=== PATIENT | female | born 1940 | race Caucasian/White ===

== ENCOUNTER 2017-02-07 07:08 | Emergency (ER) | payer OTHER ==
[2017-02-07 07:28] VITALS: RESP 18
--- NOTE | 2017-02-07 07:51 | EDPHY ---
HPI/HX/ROS/PE/MDM Narrative: CHIEF COMPLAINT: Back pain HPI: The patient is a 76 y/o female arriving with her complaining of back and shoulder pain secondary to a fall out of bed early this morning about 7 hours ago. She rolled over out of bed and land on her right side. Her pain is localized primarily to her right lower back and right shoulder. She notes she's had ongoing right-sided abdominal pain for which she is followed by her PCP that has worsened since the fall. She took one dose of [place] without improvement this morning. She came in this morning because the pain has made it difficult to walk. She denies loss of consciousness, weakness, or paresthesias. She does not use anticoagulants. REVIEW OF SYSTEMS: Aside from elements discussed in the HPI, a comprehensive 10-point review of systems was reviewed and is negative. PMH: Back surgery, Parkinson's, non-Hodgkin's lymphoma, psoriasis SOCIAL HISTORY: [facility] [place] daughter who lives here. PHYSICAL EXAM: General:Patient is alert, resting dyskinesia consistent with Parkinson's, in no acute distress. ENT:Eyes are normal to inspection. ENT inspection normal. Neck: Wearing a soft cervical collar due to old injury Respiratory:No respiratory distress. Breath sounds normal bilaterally. Cardiovascular: Regular rate and rhythm. Strong peripheral pulses. Normal cap refill. Abdomen:The abdomen has mild RLQ tenderness to palpation. There are no peritoneal signs. Back: Normal to inspection. No tenderness to palpation. Skin: Normal color. No rash. Warm and dry. Extremities: Normal appearance. Full range of motion. Neuro: Oriented x3. Normal motor function. Normal sensory function. ED Course: This is a 76 y/o female with a history of Parkinson's who presents with a 7- hour history of right shoulder and right lower back pain secondary to falling out of bed this morning. She has an existing neck injury from a previous fall. She has normal motor function and sensation in her extremities, but does have dyskinesia consistent with Parkinson's on exam. Plan for ISTAT, then head CT, neck CT, abdominal CT, humerus x-ray, and shoulder x-ray. 0925: CT neck shows reinjury of odontoid. The patient had an old fracture here, but Dr. Sims believes this is acute due to associated hematoma. 0933: Consulted with Dr. Cummings, neurosurgery. He will review images and assess patient in the ED. He also requests a neck MRI. Abdominal CT shows enlarged retroperitoneal lymph nodes that will need to be followed by the patient's oncologist. Humerus and shoulder x-rays show nothing acute. 1110: Neck MRI does not show acute odontoid fracture. I discussed these results with the patient. She will be discharged with standard follow up instructions post-fall and recommendation to see her PCP this week. She is comfortable with this plan. Return precautions discussed. MDM: This patient presents after fall out of bed. Her initial CTCsp was read as concerning for acute new trauma, but MRI is essentially negative and there are no signs of new injury. XRs are negative of the right UE. The patient complains of worsened pain in her right flank but these symptoms have been present for months and nothing acute is seen on CT. The patient is comfortable with the plan to be discharged home. - Data Points Imaging Results: Imaging Impressions Abdomen CT 02/07/17 07:46 Impression: 1. No posttraumatic abnormality identified. No source for right flank pain identified. 2. Subtle increase in prominence of retroperitoneal nodes since 2012. Results called and discussed with Kenton Jane MD, at 02/07/2017 9:46 General information for patients regarding this examination can be found at [email or web address]. If you have questions or comments about this report, please contact me at (hospital) or [phone] (cell). Cervical Spine CT 02/07/17 07:46 Impression: 1. New fluid in the right mastoid sinus. Does the patient have any symptoms of mastoiditis? 2. No posttraumatic abnormality identified. 2. CT Cervical Spine Without Contrast, 8:44 AM History: Trauma. Fall this morning. History of lymphoma. Technique: Multislice helical CT through the cervical spine without contrast from the skull base to T1. Soft tissue and bone evaluation is performed. Sagittal and coronal reconstructions are obtained and reviewed. Dose reduction techniques were utilized. Comparison: CT April 04, 2016 Findings: There is a chronic fracture through the base of the odontoid. There is increased distraction, 5mm, compared to previous 1.6 mm , and increased dorsal displacement, 4 mm compared to prior 2.5 mm. This is associated with new bulging hematoma both anterior and posteriorly. In the midline the AP diameter of the neural canal at the level of the fracture measures about 9 mm, compared to prior 15 mm. 2 small cortical bone chips are present off midline, along the posterior margins of the fracture, and were present previously. There is chronic osteoarthritic change of the joint between the odontoid and the anterior ring of C1. The skull base and the lateral masses of C1 remain normally aligned and are intact. There is likely degenerative spondylolisthesis at C4-C5 approximately 3.2 mm. There is moderate degenerative disk space narrowing between C5 and C7. There is chronic erosive change on either side of the C6-C7 disk space. There is multilevel degenerative facet disease. The facets remain normally aligned. There is fusion of bilateral C4-C5 facet joints. No additional acute fracture is identified. Impression: Suspect acute reinjury of the previous odontoid fracture, where there is new marginal hematoma, increased distraction and posterior displacement. Differential diagnosis includes a chronically unstable injury associated with thickened yanelis fracture soft tissues. MRI would be useful for differentiation if clinically indicated. Results called and discussed with Kenton Jane MD, at 02/07/2017 9:35 Final results are concordant with the initial interpretation. General information for patients regarding this examination can be found at [email or web address]. If you have questions or comments about this report, please contact me at (hospital) or [phone] (cell). Head CT 02/07/17 07:46 Impression: 1. New fluid in the right mastoid sinus. Does the patient have any symptoms of mastoiditis? 2. No posttraumatic abnormality identified. 2. CT Cervical Spine Without Contrast, 8:44 AM History: Trauma. Fall this morning. History of lymphoma. Technique: Multislice helical CT through the cervical spine without contrast from the skull base to T1. Soft tissue and bone evaluation is performed. Sagittal and coronal reconstructions are obtained and reviewed. Dose reduction techniques were utilized. Comparison: CT April 04, 2016 Findings: There is a chronic fracture through the base of the odontoid. There is increased distraction, 5mm, compared to previous 1.6 mm , and increased dorsal displacement, 4 mm compared to prior 2.5 mm. This is associated with new bulging hematoma both anterior and posteriorly. In the midline the AP diameter of the neural canal at the level of the fracture measures about 9 mm, compared to prior 15 mm. 2 small cortical bone chips are present off midline, along the posterior margins of the fracture, and were present previously. There is chronic osteoarthritic change of the joint between the odontoid and the anterior ring of C1. The skull base and the lateral masses of C1 remain normally aligned and are intact. There is likely degenerative spondylolisthesis at C4-C5 approximately 3.2 mm. There is moderate degenerative disk space narrowing between C5 and C7. There is chronic erosive change on either side of the C6-C7 disk space. There is multilevel degenerative facet disease. The facets remain normally aligned. There is fusion of bilateral C4-C5 facet joints. No additional acute fracture is identified. Impression: Suspect acute reinjury of the previous odontoid fracture, where there is new marginal hematoma, increased distraction and posterior displacement. Differential diagnosis includes a chronically unstable injury associated with thickened yanelis fracture soft tissues. MRI would be useful for differentiation if clinically indicated. Results called and discussed with Kenton Jane MD, at 02/07/2017 9:35 Final results are concordant with the initial interpretation. General information for patients regarding this examination can be found at [email or web address]. If you have questions or comments about this report, please contact me at (hospital) or [phone] (cell). Humerus X-Ray 02/07/17 07:47 Impression: Nothing acute identified. 2. Right Humerus, 2 views History: Pain post fall Comparison: None Findings: No fracture or malalignment is identified. Mineralization is normal. Impression: Negative. Shoulder X-Ray 02/07/17 07:47 Impression: Nothing acute identified. 2. Right Humerus, 2 views History: Pain post fall Comparison: None Findings: No fracture or malalignment is identified. Mineralization is normal. Impression: Negative. Cervical Spine MRI 02/07/17 09:32 Impression: Unstable chronic odontoid fracture. No evidence for acute reinjury. Findings on the CT earlier today are consistent with chronic instability. Please note that this study is less than optimal due to patient motion. Final concordant results called and discussed with Kenton Jane MD, at 02/07 11:11. Imaging: Discussed imaging studies w/ manager transit Radiologist, I viewed and interpreted images myself Laboratory Results: 02/07/17 08:01 POC Hgb 13.3 gm/dL gm/dL (12.3-15.9) POC Hct 39 % % (35.5-47.5) POC Sodium 145 mEq/L H mEq/L (134-144) POC Potassium 4.2 mEq/L mEq/L (3.3-5.0) POC Chloride 105 mEq/L mEq/L (96-108) POC BUN 26 mg/dL H mg/dL (7-23) POC Creatinine 1.0 mg/dL mg/dL (0.6-1.2) POC Glucose 93 mg/dL mg/dL (70-100) Point of Care Test Results: 02/07/17 08:01 POC Sodium 145 H POC Potassium 4.2 POC Chloride 105 POC BUN 26 H POC Creatinine 1.0 POC Glucose 93 General Time Seen by Provider: 02/07/17 07:25 Initial Vital Signs: Initial Vital Signs Temperature (C) 36.5 C 02/07/17 07:25 Heart Rate 79 02/07/17 07:25 Respiratory Rate 18 02/07/17 07:25 Blood Pressure 119/99 H 02/07/17 07:25 O2 Sat (%) 94 02/07/17 07:25 O2 Delivery Mode Room Air Allergies/Adverse Reactions: latex Allergy (Verified 02/07/17 07:24) Penicillins Allergy (Verified 02/07/17 07:24) Home Medications: Medication Instructions Recorded Amantadine HCl [Symmetrel] 100 mg PO BID 04/04/16 Glucosamine 1,500 mg PO DAILY@1200 04/04/16 Multivitamin 1 ea PO DAILY@1200 04/04/16 Ropinirole HCl 12 mg PO BID 04/04/16 Zelapar 1.25 mg PO DAILY 04/04/16 Zocor 10 mg PO HS 04/04/16 Acetaminophen [Acetaminophen Extra 1,000 mg PO HS 04/05/16 Strength] Herbals/Supplements -Info Only 1 ea PO AD 04/05/16 Rytary ER 36.25 mg-145 mg Cap 36.25 mg PO ACHS 04/05/16 Venlafaxine HCl [Venlafaxine HCl 150 mg PO DAILY 04/05/16 ER] Acetaminophen [Tylenol 325mg (*)] 325 - 650 mg PO Q4 PRN #0 tab 04/06/16 Acetaminophen [Tylenol ES 500 mg 1,000 mg PO HS #0 tab 04/06/16 (*)] Amantadine HCl [Symmetrel] 100 mg PO BID #0 cap 04/06/16 Calcium Carb W/Vit D [Calcium Carb 500 mg PO HS #0 tab 04/06/16 W/Vit D 500/200 (*)] Furosemide [Lasix 20 MG (*)] 20 mg PO DAILY PRN #0 tab 04/06/16 HYDROmorphone HCL [Dilaudid] 0.2 - 0.4 mg IVP Q4 PRN #0 syr 04/06/16 LORazepam [Ativan inj 2 mg/ml (*)] 0.5 mg IVP Q6 PRN #0 inj 04/06/16 Ondansetron HCl Pf [Zofran 4 mg 4 mg IVP Q4 PRN #0 vial 04/06/16 Inj (*)] Pravastatin Sodium [Pravachol] 20 mg PO HS #0 tab 04/06/16 Ropinirole HCl 12 mg PO BID 04/06/16 Rytary Er 36.25 Mg-145 Mg Cap 36.25 mg PO ACHS 04/06/16 Venlafaxine Xr [Effexor Xr] 150 mg PO DAILY #0 cap 04/06/16 Zelapar 1.25 mg PO DAILY@0600 04/06/16 Zolpidem Tartrate [Ambien 5MG (*)] 5 - 10 mg PO HS PRN #0 tab 04/06/16 oxyCODONE/APAP 5/325 [Percocet 1 - 2 tab PO Q4 PRN #0 tab 04/06/16 5/325 (*)] Departure - Departure Disposition: Home, Routine, Self-Care Clinical Impression: Fall Qualifiers: Encounter type: initial encounter Qualified Code(s): W19.XXXA - Unspecified fall, initial encounter Right shoulder pain Qualifiers: Chronicity: acute Qualified Code(s): M25.511 - Pain in right shoulder Condition: Good Instructions: Fall Prevention for Older Adults (ED), Shoulder Pain (ED) Additional Instructions: 1. Follow up with your primary care provider this week. 2. Your abdominal CT showed some enlarged retroperitoneal lymph nodes that should be followed up by your oncologist within 6 weeks. 3. Return to the ED for severe pain, weakness or numbness in your extremities, worsening abdominal pain, or other worsening of condition. Referrals: Patient,NotPresent [Primary Care Provider] - As per Instructions Report Scribed for: Kenton Jane Report Scribed by: Natalia Mitchell Date of Report: 02/07/17 Time of Report: 07:51 Physician Review and Approval Statement: Portions of this note were transcribed by an ED scribe. I personally performed the history, physical exam, and medical decision making; and confirm the accuracy of the information in the transcribed note.
[2017-02-07] MEDS ORDERED: IOPAMIDOL (ISOVUE-300) 100 ML BTL ONE (07:59)
[2017-02-07 12:00] VITALS: BP 125/74; PULSE 82; TEMP 97.9; O2SAT 92
--- NOTE | 2017-02-07 14:13 | GCON ---
[f rep st] CONSULTATION NEUROSURGICAL CONSULT. DATE OF CONSULTATION: 02/07/2017 Patient was seen and evaluated at approximately 11:45 a.m. in the [facility] Emergen cy Department. CHIEF COMPLAINT: Chronic neck fracture. HPI: The patient is a 76-year-old woman, who presented to the ER today complaining of back and shou lder pain after a fall out of bed, approximately 7 hours prior to her presentation. She does have a history of a type 2 odontoid fracture from March of 2016, for which she was seen in the same hospita l. She lives in [place], has been managed by a surgeon there, and is known to have a stable ps eudoarthrosis. She does not have any new neck pain today, or any signs of spinal cord compression o r radiculopathy. She did have a CT scan of the cervical spine, which shows about 3-4 mm of distract ion of the fracture at C2. She also had an MRI of the cervical spine, which does not show any spina l cord compression or hematoma, and no new fracture. She does not have any new symptoms from what s he had before. REVIEW OF SYSTEMS: A 10-point review of systems is negative, other than described in the HPI. PAST MEDICAL HISTORY: 1. L4-5 fusion. 2. Parkinson disease. 3. Non-Hodgkin's lymphoma. 4. Psoriasis. 5. 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 FAMILY HISTORY: Negative for any neck fractures. SOCIAL HISTORY: The patient is accompanied by her . She is from [place], is visiting [facility] daughter, who is with twins. She denies tobacco, alcohol or other drug use. ALLERGIES: 1. Latex. 2. Penicillin. MEDICATIONS: 1. Amantadine. 2. Glucosamine. 3. Multivitamin. 4. Ropinirole. 5. Zelapar. 6. Zocor. 7. Acetaminophen. 8. Rytary ER. 9. Venlafaxine. 10. Calcium carbonate. 11. Lasix. 12. Dilaudid. 13. Lorazepam. 14. Zofran. 15. Pravastatin. PHYSICAL EXAM: GENERAL: Currently, she is awake, alert, and oriented x3. NEURO: The cranial nerv es 2-12 are grossly normal. Her speech is clear and fluent. She does have clear dyskinesias from [facility] Parkinson's medications, but has no sign of bradykinesia at this point. She has full 5/5 strengt h in deltoids, biceps, triceps, wrist flexion, extension, and print room worker on both sides. In the lower extr emities, she has full 5/5 strength in hip flexors, extensors, knee flexors, extensors, plantar and d orsiflexion bilaterally. Her deep tendon reflexes are normal. Her sensation is normal throughout t o light touch and pinprick. She does not have any pain with palpation of the neck. She is currentl y wearing a soft collar, which is what she wears at home. IMAGING REVIEW: See HPI. LABORATORY REVIEW: The hemoglobin is 13.3, hematocrit 39. ASSESSMENT AND PLAN: The patient is a 76-year-old woman who has a stable pseudoarthrosis of type 2 odontoid fracture. She really does not have any neck pain at this time, and there are certainly no signs of spinal cord compression. She follows in [place] with a neurosurgeon for this same pro blem. I do not see any reason for any acute interventions at this time. I did tell her that if she were ever to develop any new neurologic symptoms or intractable neck pain, that might be a reason f or C1-2 fusion, but she has been living with this for about a year, and has not had any new problems , so I do not see any reason to change course at this time. I answered all of her questions, as wel l as her 's, and they are in agreement, and she is going to be discharged home at this point, and wear her soft collar for comfort. I am happy to see her again at any point in the future, if n eed be, but otherwise she can follow up in [place] with her own neurosurgeon. /[id number]/MODL
== END 2017-02-07 11:59 | disposition home or self-care (01) ==
DX: S49.91XA Unspecified injury of right shoulder and upper arm, initial encounter (principal); G20 Parkinson's disease; W06.XXXA Fall from bed, initial encounter
CPT/HCPCS: 70450; 72125; 72141; 73030; 73060; 74177; 99285; Q9967; 82947-QW

== ENCOUNTER 2018-03-31 21:39 | Emergency (ER) | payer OTHER ==
--- NOTE | 2018-03-31 21:40 | EDPHY ---
H & P Time Seen by Provider: 03/31/18 21:40 HPI/ROS: HPI CHIEF COMPLAINT: Bilateral lower extremity edema HISTORY OF PRESENT ILLNESS: This is a 78-year-old female she is visiting from the [place], she just arrived to [facility] yesterday, she presents emergency room with lower extremity bilateral edema. She states she takes a water pill for this every other day however it has gotten acutely worse. She has been traveling for the past 24 hr on flights and air ports. She is here visiting her daughter. She denies any chest pain or shortness of breath. Denies pleuritic pain, hemoptysis. Compliant with her medications. Past Medical History: Parkinson's disease, arthritis, non-Hodgkin's lymphoma Past Surgical History: Multiple orthopedic surgery Social History: Denies drugs alcohol tobacco. From [place]. Visiting daughter here. Family History: Noncontributory ROS REVIEW OF SYSTEMS: A comprehensive 10 point review of systems is otherwise negative aside from elements mentioned in the history of present illness. Exam Constitutional appears elderly, frail, nontoxic appearing triage nursing summary reviewed, vital signs reviewed, awake/alert. Eyes normal conjunctivae and sclera, EOMI, PERRLA. HENT normal inspection, atraumatic, moist mucus membranes, no epistaxis, neck supple/ no meningismus, no raccoon eyes. Respiratory clear to auscultation bilaterally, normal breath sounds, no respiratory distress, no wheezing. Cardiovascular rate normal, regular rhythm, no murmur, no edema, distal pulses normal. Gastrointestinal soft, non-tender, no rebound, no guarding, normal bowel sounds, no distension, no pulsatile mass. Genitourinary no CVA tenderness. Musculoskeletal bilateral lower extremity: Pitting edema bilaterally up to the knees, appears to be chronic as her lower extremity edema is somewhat hard, no signs of cellulitis no midline vertebral tenderness, full range of motion, no calf swelling, no tenderness of extremities, no meningismus, good pulses, neurovascularly intact. Skin pink, warm, & dry, no rash, skin atraumatic. Neurologic awake, alert and oriented x 3, AAOx3, moves all 4 extremities equally, motor intact, sensory intact, CN II-XII intact, normal cerebellar, normal vision, normal speech. Psychiatric normal mood/affect. Heme/Lymph/Immune no lymphadenopathy. Differential Diagnosis: Includes but is not limited to in a particular order peripheral edema, bilateral lower extremity edema, DVTs, venous insufficiency, renal failure, CHF Medical Decision Making: Plan for this patient for worsening bilateral lower extremity edema this appears to be peripheral edema however will perform bilateral lower extremity ultrasounds to rule out DVTs, check creatinine, check a BNP, check troponin, no evidence of acute heart failure on exam. Most likely this is peripheral edema from traveling and a being very hot out. She is on a water pill every other day I will recommend that she takes this every day keep her legs elevated, compression stockings. Follow up with her primary care doctor. Re-evaluation: 2310: Bilateral lower extremity ultrasound shows no evidence of DVT. 2310: Patient's blood work reviewed. I do recommend she elevate her legs for peripheral edema, compression stockings, and increasing her water pill. Follow up closely with primary care doctor. Distally patient understands return emergency room if she develops any worsening symptoms questions or concerns. 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, osteoarthritis, R knee replacement, - Social History Smoking Status: Never smoked Constitutional: Initial Vital Signs Temperature (C) 36.7 C 03/31/18 21:45 Heart Rate 85 03/31/18 21:45 Respiratory Rate 18 03/31/18 21:45 Blood Pressure 135/71 H 03/31/18 21:45 O2 Sat (%) 91 L 03/31/18 21:45 O2 Delivery Mode Room Air Allergies/Adverse Reactions: latex Allergy (Verified 02/07/17 07:24) Penicillins Allergy (Verified 02/07/17 07:24) Home Medications: Medication Instructions Recorded Amantadine HCl [Symmetrel] 100 mg PO BID 04/04/16 Glucosamine 1,500 mg PO DAILY@119904/04/16 Multivitamin 1 ea PO DAILY@119904/04/16 Ropinirole HCl 12 mg PO BID 04/04/16 Zelapar 1.25 mg PO DAILY 04/04/16 Zocor 10 mg PO HS 04/04/16 Acetaminophen [Acetaminophen Extra 1,000 mg PO HS 04/05/16 Strength] Herbals/Supplements -Info Only 1 ea PO AD 04/05/16 Rytary ER 36.25 mg-145 mg Cap 36.25 mg PO ACHS 04/05/16 Venlafaxine HCl [Venlafaxine HCl 150 mg PO DAILY 04/05/16 ER] Acetaminophen [Tylenol 325mg (*)] 325 - 650 mg PO Q4 PRN #0 tab 04/06/16 Acetaminophen [Tylenol ES 500 mg 1,000 mg PO HS #0 tab 04/06/16 (*)] Amantadine HCl [Symmetrel] 100 mg PO BID #0 cap 04/06/16 Calcium Carb W/Vit D [Calcium Carb 500 mg PO HS #0 tab 04/06/16 W/Vit D 500/200 (*)] Furosemide [Lasix 20 MG (*)] 20 mg PO DAILY PRN #0 tab 04/06/16 HYDROmorphone HCL [Dilaudid] 0.2 - 0.4 mg IVP Q4 PRN #0 syr 04/06/16 LORazepam [Ativan inj 2 mg/ml (*)] 0.5 mg IVP Q6 PRN #0 inj 04/06/16 Ondansetron HCl Pf [Zofran 4 mg 4 mg IVP Q4 PRN #0 vial 04/06/16 Inj (*)] Pravastatin Sodium [Pravachol] 20 mg PO HS #0 tab 04/06/16 Ropinirole HCl 12 mg PO BID 04/06/16 Rytary Er 36.25 Mg-145 Mg Cap 36.25 mg PO ACHS 04/06/16 Venlafaxine Xr [Effexor Xr] 150 mg PO DAILY #0 cap 04/06/16 Zelapar 1.25 mg PO DAILY@0600 04/06/16 Zolpidem Tartrate [Ambien 5MG (*)] 5 - 10 mg PO HS PRN #0 tab 04/06/16 oxyCODONE/APAP 5/325 [Percocet 1 - 2 tab PO Q4 PRN #0 tab 04/06/16 5/325 (*)] Medical Decision Making - Data Points Laboratory Results: Laboratory Results 03/31/18 22:15 03/31/18 22:15 07/12/18 07/12/18 22:15 22:15 WBC 5.74 10^3/uL 10^3/uL (3.80-9.50) RBC 3.55 10^6/uL L 10^6/uL (4.18-5.33) Hgb 10.2 g/dL L g/dL (12.6-16.3) Hct 31.9 % L % (38.0-47.0) MCV 89.9 fL fL (81.5-99.8) MCH 28.7 pg pg (27.9-34.1) MCHC 32.0 g/dL L g/dL (32.4-36.7) RDW 15.0 % % (11.5-15.2) Plt Count 240 10^3/uL 10^3/uL (150-400) MPV 10.5 fL fL (8.7-11.7) Neut % (Auto) 53.0 % % (39.3-74.2) Lymph % (Auto) 28.4 % % (15.0-45.0) [place] % (Auto) 12.4 % % (4.5-13.0) Eos % (Auto) 5.1 % % (0.6-7.6) Baso % (Auto) 0.9 % % (0.3-1.7) Nucleat RBC Rel Count 0.0 % % (0.0-0.2) Absolute Neuts (auto) 3.05 10^3/uL 10^3/uL (1.70-6.50) Absolute Lymphs (auto) 1.63 10^3/uL 10^3/uL (1.00-3.00) Absolute Monos (auto) 0.71 10^3/uL 10^3/uL (0.30-0.80) Absolute Eos (auto) 0.29 10^3/uL 10^3/uL (0.03-0.40) Absolute Basos (auto) 0.05 10^3/uL 10^3/uL (0.02-0.10) Absolute Nucleated RBC 0.00 10^3/uL 10^3/uL (0-0.01) Immature Gran % 0.2 % % (0.0-1.1) Immature Gran # 0.01 10^3/uL 10^3/uL (0.00-0.10) Sodium 141 mEq/L mEq/L (135-145) Potassium 4.0 mEq/L mEq/L (3.3-5.0) Chloride 106 mEq/L mEq/L (97-110) Carbon Dioxide 26 mEq/l mEq/l (22-31) Anion Gap 9 mEq/L mEq/L (8-16) BUN 31 mg/dL H mg/dL (7-23) Creatinine 1.0 mg/dL mg/dL (0.6-1.0) Estimated GFR 54 Glucose 135 mg/dL H mg/dL (70-100) Calcium 9.4 mg/dL mg/dL (8.5-10.4) NT-Pro-B Natriuret Pep 266 pg/mL pg/mL (0-450) Departure - Departure Disposition: Home, Routine, Self-Care Clinical Impression: Peripheral edema Condition: Good Instructions: Edema (ED) Additional Instructions: 1. Keep your legs elevated as much as possible 2. I recommend you by compression stockings to help with the edema 3. I would increase her water pill daily over the next week. Referrals: NONE *PRIMARY CARE P,. [Primary Care Provider] - As per Instructions
[2018-03-31 22:27] LABS: PLATELET COUNT 240 10^3/uL (150-400)
[2018-03-31 23:27] VITALS: BP 160/73
== END 2018-03-31 23:52 | disposition home or self-care (01) ==
DX: R60.0 Localized edema (principal); G20 Parkinson's disease; Z85.72 Personal history of non-Hodgkin lymphomas; Z91.040 Latex allergy status
CPT/HCPCS: 84484-PO

== ENCOUNTER 2018-07-03 10:24 | Emergency (ER) | payer OTHER ==
--- NOTE | 2018-07-03 10:28 | EDPHY ---
HPI/HX/ROS/PE/MDM Narrative: CHIEF COMPLAINT: Fall, neck pain, hip pain, hypoglycemia HPI: The patient is a 78 y/o female with a history of multiple falls, complaining of neck pain and hip pain after a fall this morning. This morning, she tried to get into the shower while her went to get breakfast. She tripped on the lip into the shower and fell. She denies hitting her head or loss of consciousness. Her reports she falls frequently but he is usually able to get her back up. He was unable to help he up. On scene EMS found she was hypoglycemic. She reports pain bilaterally to the lateral aspect of the neck and pain in the right hip. She denies any other associated symptoms. Her reports she fractured C2 in 2016 and had surgery to fuse it to her skull. The surgery was later reversed. She also fell a couple weeks ago and did not brace herself, falling hard. He is concerned that the two falls may have further injured C2. REVIEW OF SYSTEMS: Aside from elements discussed in the HPI, a comprehensive 10-point review of systems was reviewed and is negative. PMH: Multiple falls, C2 fracture, C2 to skull fusion then reversal SOCIAL HISTORY: Lives in [facility], at bedside, non-smoker PHYSICAL EXAM: General:Patient is alert, in no acute distress. ENT:Eyes are normal to inspection. Ecchymosis above left eye. ENT inspection normal. Neck: Normal inspection. Full range of motion. Respiratory:No respiratory distress. Breath sounds normal bilaterally. Cardiovascular: Regular rate and rhythm. Strong peripheral pulses. Normal cap refill. Abdomen:The abdomen is nontender to palpation. There are no peritoneal signs. There are normal bowel sounds. Back: Normal to inspection. No tenderness to palpation. Skin: Normal color. No rash. Warm and dry. Extremities: Normal appearance. Full range of motion. Neuro: Oriented x3. Normal motor function. Normal sensory function. (Kenton Jane) ED Course: Study: CT of the head and neck Indication: frequent falls Results: CT scan of the head and neck was obtained. The results of the study are : no change from previous CT The study was read by the radiologist, Dr. Sims. I viewed the images myself on the PACS system. The patient presents with neck pain and right hip pain after a fall. She tripped onto the lip into the shower and fell this morning. She has a history of a C2 fracture that her is concerned may be worsened by her recent fall. Plan for CBC, basic metabolic panel, iSTAT, troponin, 500 ml NS fluid, and head and neck CT. 1:15 PM - The CT is normal. Blood work is non-concerning. Urinalysis is pending. The patient was given Ativan for a panic attack. 2:15 PM - Urinalysis is normal. I reassessed the patient and found her asleep. The family would like to take her home once she wakes up. I feel this patient is safe to be discharged with instructions to follow up if pain persists. The family agree to this course of action. Follow up instructions and return precautions given. Her blood pressure has been elevated while she has been in the ED in the 180s systolic. I informed the family and they have chosen not to start her on any treatment at this time. (Kenton Jane) MDM: I took over care of this patient at 3:00 p.m.. This patient is here for evaluation after mechanical fall. She has a history of Parkinson's. She has a history of a prior C2 fracture. She had some anxiety during imaging which included CT scan of her head and cervical spine. Her workup has been negative, however she was given some Ativan for her anxiety and secondary to this has been sleepy. At this time we are waiting for her to awake and she can be discharged to home with her who is present in the room. 4:50 p.m., the patient was re-evaluated. She is awake, alert and at her baseline mental status. The feels comfortable taking her home at this time. Repeat blood sugar is 121. Follow-up and return to emergency department precautions reviewed with the patient and her . All of their questions were answered. The patient was discharged home in good condition with her . (Zackery Centeno) - Data Points Imaging Results: Imaging Impressions Cervical Spine CT 07/03/18 10:51 Impression: 1. No intracranial posttraumatic sequela identified. 2. Likely old left nasal fracture. 2. CT Cervical Spine Without Contrast History: Trauma., Fall, pain Comparison: CT February 07, 2017 Technique: Multi-slice ultrathin single breath-hold helical CT through the neck from the skull base through the thoracic inlet without contrast. Soft tissue and bone window evaluation is performed. Sagittal and coronal reconstructions are obtained. Dose reduction techniques were utilized. Findings: The patient's spine is tilted. 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 The odontoid process remains isolated and is again distracted by approximately 5 mm. It remains slightly posteriorly displaced and associated with unchanged moderate posterior subluxation of the C1 lateral masses on C2. There is new dense solid fusion of the right facets between C2 and C6 (previously only fused at C4-C5). Severe degenerative change of the right C6-C7 facet remains. There is progressive degenerative change of left facets with chronic fusion of C4-C5. No acute fracture or dislocation is identified. Degenerative disk space narrowing tween C5 and C7 is stable. Mild spondylolistheses between C3 and C6 and at C7-T1 are stable. There is no evidence of a prevertebral or epidural hematoma. The cervical thoracic junction is stable. Her is an unchanged old T1 spinous process solidly healed fracture. Impression: Nothing acute identified. Multilevel degenerative disk and facet degeneration and an old ununited odontoid process fracture are again present. If there is concern for instability, then consider lateral flexion-extension views, cervical fluoroscopy and/or cervical MRI. Results discussed with Dr. Kenton Jane at 12:16 PM. General information for patients regarding this examination can be found at [email or web address]. If you have questions or comments about this report, please contact me at [phone](hospital) or [phone] (cell). Head CT 07/03/18 10:51 Impression: 1. No intracranial posttraumatic sequela identified. 2. Likely old left nasal fracture. 2. CT Cervical Spine Without Contrast History: Trauma., Fall, pain Comparison: CT February 07, 2017 Technique: Multi-slice ultrathin single breath-hold helical CT through the neck from the skull base through the thoracic inlet without contrast. Soft tissue and bone window evaluation is performed. Sagittal and coronal reconstructions are obtained. Dose reduction techniques were utilized. Findings: The patient's spine is tilted. 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 The odontoid process remains isolated and is again distracted by approximately 5 mm. It remains slightly posteriorly displaced and associated with unchanged moderate posterior subluxation of the C1 lateral masses on C2. There is new dense solid fusion of the right facets between C2 and C6 (previously only fused at C4-C5). Severe degenerative change of the right C6-C7 facet remains. There is progressive degenerative change of left facets with chronic fusion of C4-C5. No acute fracture or dislocation is identified. Degenerative disk space narrowing tween C5 and C7 is stable. Mild spondylolistheses between C3 and C6 and at C7-T1 are stable. There is no evidence of a prevertebral or epidural hematoma. The cervical thoracic junction is stable. Her is an unchanged old T1 spinous process solidly healed fracture. Impression: Nothing acute identified. Multilevel degenerative disk and facet degeneration and an old ununited odontoid process fracture are again present. If there is concern for instability, then consider lateral flexion-extension views, cervical fluoroscopy and/or cervical MRI. Results discussed with Dr. Kenton Jane at 12:16 PM. General information for patients regarding this examination can be found at [email or web address]. If you have questions or comments about this report, please contact me at [phone](hospital) or [phone] (cell). Laboratory Results: Laboratory Results 07/03/18 11:00 07/03/18 11:00 07/03/18 07/03/18 07/03/18 16:19 13:45 11:07 WBC RBC Hgb POC Hgb 14.3 gm/dL gm/dL (12.6-16.3) Hct POC Hct 42 % % (38-47) MCV MCH MCHC RDW Plt Count MPV Neut % (Auto) Lymph % (Auto) [place] % (Auto) Eos % (Auto) Baso % (Auto) Nucleat RBC Rel Count Absolute Neuts (auto) Absolute Lymphs (auto) Absolute Monos (auto) Absolute Eos (auto) Absolute Basos (auto) Absolute Nucleated RBC Immature Gran % Immature Gran # POC Sodium 143 mEq/L mEq/L (135-145) Sodium POC Potassium 4.1 mEq/L mEq/L (3.3-5.0) Potassium POC Chloride 107 mEq/L mEq/L (97-110) Chloride Carbon Dioxide Anion Gap POC BUN 35 mg/dL H mg/dL (7-23) BUN Creatinine POC Creatinine 0.9 mg/dL mg/dL (0.6-1.0) Estimated GFR Glucose POC Glucose 121 mg/dL H mg/dL 103 mg/dL H mg/dL (70-100) (70-100) Calcium Urine Color PALE YELLOW Urine Appearance CLEAR Urine pH 7.0 (5.0-7.5) Ur Specific [place] 1.010 (1.002-1.030) Urine Protein NEGATIVE (NEGATIVE) Urine Ketones NEGATIVE (NEGATIVE) Urine Blood NEGATIVE (NEGATIVE) Urine Nitrate NEGATIVE (NEGATIVE) Urine Bilirubin NEGATIVE (NEGATIVE) Urine Urobilinogen NEGATIVE EU EU (0.2-1.0) Ur Leukocyte Esterase NEGATIVE (NEGATIVE) Urine Glucose NEGATIVE (NEGATIVE) 07/03/18 07/03/18 11:00 11:00 WBC 9.26 10^3/uL 10^3/uL (3.80-9.50) RBC 4.33 10^6/uL 10^6/uL (4.18-5.33) Hgb 13.0 g/dL g/dL (12.6-16.3) POC Hgb Hct 40.1 % % (38.0-47.0) POC Hct MCV 92.6 fL fL (81.5-99.8) MCH 30.0 pg pg (27.9-34.1) MCHC 32.4 g/dL g/dL (32.4-36.7) RDW 15.1 % % (11.5-15.2) Plt Count 269 10^3/uL 10^3/uL (150-400) MPV 10.6 fL fL (8.7-11.7) Neut % (Auto) 63.5 % % (39.3-74.2) Lymph % (Auto) 25.1 % % (15.0-45.0) [place] % (Auto) 8.3 % % (4.5-13.0) Eos % (Auto) 2.1 % % (0.6-7.6) Baso % (Auto) 0.8 % % (0.3-1.7) Nucleat RBC Rel Count 0.0 % % (0.0-0.2) Absolute Neuts (auto) 5.89 10^3/uL 10^3/uL (1.70-6.50) Absolute Lymphs (auto) 2.32 10^3/uL 10^3/uL (1.00-3.00) Absolute Monos (auto) 0.77 10^3/uL 10^3/uL (0.30-0.80) Absolute Eos (auto) 0.19 10^3/uL 10^3/uL (0.03-0.40) Absolute Basos (auto) 0.07 10^3/uL 10^3/uL (0.02-0.10) Absolute Nucleated RBC 0.00 10^3/uL 10^3/uL (0-0.01) Immature Gran % 0.2 % % (0.0-1.1) Immature Gran # 0.02 10^3/uL 10^3/uL (0.00-0.10) POC Sodium Sodium 141 mEq/L mEq/L (135-145) POC Potassium Potassium 4.5 mEq/L mEq/L (3.3-5.0) POC Chloride Chloride 105 mEq/L mEq/L (97-110) Carbon Dioxide 24 mEq/l mEq/l (22-31) Anion Gap 12 mEq/L mEq/L (6-14) POC BUN BUN 39 mg/dL H mg/dL (7-23) Creatinine 0.9 mg/dL mg/dL (0.6-1.0) POC Creatinine Estimated GFR > 60 Glucose 102 mg/dL H mg/dL (70-100) POC Glucose Calcium 10.2 mg/dL mg/dL (8.5-10.4) Urine Color Urine Appearance Urine pH Ur Specific [place] Urine Protein Urine Ketones Urine Blood Urine Nitrate Urine Bilirubin Urine Urobilinogen Ur Leukocyte Esterase Urine Glucose Medications Given: Discontinued Medications Sodium Chloride (Ns) 500 mls @ 0 mls/hr IV EDNOW ONE; Wide Open PRN Reason: Protocol Stop: 07/03/18 10:31 Last Admin: 07/03/18 11:11 Dose: 500 mls Lorazepam (Ativan Injection) 1 mg IVP EDNOW ONE Stop: 07/03/18 12:26 Last Admin: 07/03/18 12:29 Dose: 1 mg Point of Care Test Results: Chemistry 07/03/18 07/03/18 16:19 11:07 POC Sodium 143 mEq/L mEq/L (135-145) POC Potassium 4.1 mEq/L mEq/L (3.3-5.0) POC Chloride 107 mEq/L mEq/L (97-110) POC BUN 35 mg/dL H mg/dL (7-23) POC Creatinine 0.9 mg/dL mg/dL (0.6-1.0) POC Glucose 121 mg/dL H mg/dL 103 mg/dL H mg/dL (70-100) (70-100) ISTAT H&H 07/03/18 11:07 POC Hgb 14.3 gm/dL gm/dL (12.6-16.3) POC Hct 42 % % (38-47) General Time Seen by Provider: 07/03/18 10:25 Initial Vital Signs: Initial Vital Signs Temperature (C) 36.4 C 07/03/18 10:38 Heart Rate 67 07/03/18 10:38 Respiratory Rate 16 07/03/18 10:38 Blood Pressure 182/102 H 07/03/18 10:38 O2 Sat (%) 91 L 07/03/18 10:38 O2 Delivery Mode Room Air Allergies/Adverse Reactions: latex Allergy (Verified 02/07/17 07:24) Penicillins Allergy (Verified 02/07/17 07:24) Home Medications: Medication Instructions Recorded Glucosamine 1,500 mg PO DAILY@1200 04/04/16 Multivitamin 1 ea PO DAILY@119904/04/16 Herbals/Supplements -Info Only 1 ea PO AD 04/05/16 Rytary ER 36.25 mg-145 mg Cap 36.25 mg PO ACHS 04/05/16 Acetaminophen [Tylenol 325mg (*)] 325 - 650 mg PO Q4 PRN #0 tab 04/06/16 Calcium Carb W/Vit D [Calcium Carb 500 mg PO HS #0 tab 04/06/16 W/Vit D 500/200 (*)] Furosemide [Lasix 20 MG (*)] 20 mg PO DAILY PRN #0 tab 04/06/16 Venlafaxine Xr [Effexor Xr] 150 mg PO DAILY #0 cap 04/06/16 Sinemet 25/100 MG (*) 07/03/18 Departure - Departure Disposition: Home, Routine, Self-Care Clinical Impression: Neck pain, acute Hip pain Qualifiers: Laterality: right Qualified Code(s): M25.551 - Pain in right hip Fall Qualifiers: Encounter type: initial encounter Qualified Code(s): W19.XXXA - Unspecified fall, initial encounter Condition: Good Instructions: Fall Prevention for Older Adults (ED), Hip Pain (ED), Neck Pain ( ED) Additional Instructions: 1. Please follow up with your primary care provider for continued symptoms in 3 to 4 days. 2. Return to the emergency department for any worsening of condition. Referrals: Patient,NotPresent [Unknown] - As per Instructions Report Scribed for: Kenton Jane Report Scribed by: Dalila Louise Date of Report: 07/03/18 Time of Report: 10:56 Physician Review and Approval Statement: Portions of this note were transcribed by an ED scribe. I personally performed the history, physical exam, and medical decision making; and confirm the accuracy of the information in the transcribed note.
[2018-07-03] MEDS ORDERED: NS 500 ML IV ONE (10:30)
[2018-07-03 11:20] LABS: PLATELET COUNT 269 10^3/uL (150-400)
[2018-07-03] MEDS ORDERED: LORazepam 2 MG/ML INJ IVP ONE (12:25)
[2018-07-03 17:18] VITALS: BP 132/80
--- NOTE | 2018-07-04 20:27 | CPEKG ---
Test Reason : OPEN Blood Pressure : / mmHG Vent. Rate : 066 BPM Atrial Rate : 065 BPM P-R Int : 150 ms QRS Dur : 110 ms QT Int : 408 ms P-R-T Axes : 042 -21 032 degrees QTc Int : 428 ms Sinus rhythm Borderline left axis deviation Confirmed by Kenton Jane ([id number]) on 07/04/2018 8:27:24 PM Referred By: Confirmed By:Kenton Jane
== END 2018-07-03 17:00 | disposition home or self-care (01) ==
LOC: EDUNIT#
DX: S19.9XXA Unspecified injury of neck, initial encounter (principal); S79.911A Unspecified injury of right hip, initial encounter; E86.9 Volume depletion, unspecified; W19.XXXA Unspecified fall, initial encounter
CPT/HCPCS: 70450; 72125; 93005; 96361; 96374; 96375; 99284; J2060; 82435-PO; 82565-PO; 82947-PO; 84132-PO; 84295-PO; 84520-PO; 85014-PO